=== PATIENT | male | born 1965 | race Caucasian/White ===

== ENCOUNTER 2020-09-22 09:33 | Emergency (ER) | payer OTHER ==
[2020-09-22 09:43] VITALS: BP 146/89; PULSE 78; BMI 428.7
[2020-09-22 09:53] VITALS: TEMP 97.3
[2020-09-22] MEDS ORDERED: KETOROLAC TROMETHAMINE 15 MG/ML VIAL IVPUSH ONE (10:34)
[2020-09-22] MEDS ORDERED: ACETAMINOPHEN 325 MG TABLET (FP) PO ONE (10:35)
[2020-09-22] MEDS ORDERED: LIDOCAINE 5% TOPICAL PATCH TP ONE (10:36)
[2020-09-22] MEDS ORDERED: KETOROLAC TROMETHAMINE 15 MG/ML VIAL ONE (10:48)
[2020-09-22] MEDS ORDERED: LIDOCAINE 5% TOPICAL PATCH ONE (10:48)
[2020-09-22 11:02] LABS: EOS % 0.8 % (0-4.5); HEMATOCRIT 41.5 % (35.4-49); HEMOGLOBIN 13.7 GM/dL (11.7-16.9); MCH 26.2 pg (25.7-33.7); MEAN CELL VOLUME 79.5 fl (80-96); MEAN PLT VOLUME 8.8 fl (7.5-11.1); MONO % 8.1 % (3.8-10.2); NEUT % 74.1 % (42.8-82.8); PLATELET COUNT 307 K/MM3 (134-434); RBC 5.23 M/mm3 (4.00-5.60); RDW 17.2 % (11.9-15.9); WHITE BLOOD COUNT 13.2 K/mm3 (4.0-10.0)
[2020-09-22 11:22] LABS: CHLORIDE 106 mmol/L (98-107); POTASSIUM 4.6 mmol/L (3.5-5.1); SODIUM 137 mmol/L (136-145)
[2020-09-22 11:24] LABS: ALBUMIN 3.2 g/dl (3.4-5.0); ANION GAP 5 MMOL/L (8-16); BLOOD UREA NITROGEN 16.1 mg/dL (7-18); CALCIUM 8.6 mg/dL (8.5-10.1); CO2 26 mmol/L (21-32)
[2020-09-22 11:25] LABS: GLUCOSE,RANDOM 89 mg/dL (74-106)
[2020-09-22 11:27] LABS: SGOT/AST 12 U/L (15-37); SGPT/ALT 17 U/L (13-61)
[2020-09-22 11:29] LABS: BILIRUBIN,TOTAL 0.5 mg/dL (0.2-1); TOT PROT 7.5 g/dl (6.4-8.2)
[2020-09-22 11:30] LABS: ALK PHOS 71 U/L (45-117)
[2020-09-22] MEDS ORDERED: LIDOCAINE PATCH REMOVAL MC ONE (22:00)
== END 2020-09-22 12:17 | disposition home or self-care (01) ==
LOC: JER 09:33
PROC: 3E0333Z Introduction of Anti-inflammatory into Peripheral Vein, Percutaneous Approach (ICD-10-PCS; principal; 2020-09-22)
DX: M25.511 Pain in right shoulder (principal)
CPT/HCPCS: 36415; 71045-TC-FY; 73030-TC-RT-FY; 80053; 82550; 83735; 84484; 85025; 93005; 93010; 99285-25

== ENCOUNTER 2021-03-18 20:32 | Emergency (ER) | payer OTHER ==
[2021-03-18 20:40] VITALS: BP 151/99; PULSE 74; TEMP 98; BMI 47.5
[2021-03-18] MEDS ORDERED: KETOROLAC TROMETHAMINE 30 MG/1 ML VIAL IM ONE (21:46)
[2021-03-18] MEDS ORDERED: CLINDAMYCIN HCL 300 MG CAPSULE PO ONE (21:54)
[2021-03-18] MEDS ORDERED: KETOROLAC TROMETHAMINE 30 MG/1 ML VIAL ONE (22:09)
[2021-03-18] MEDS ORDERED: CLINDAMYCIN HCL 150 MG CAPSULE (FP) ONE (22:10)
== END 2021-03-18 22:35 | disposition home or self-care (01) ==
LOC: JERFT 20:32
PROC: 3E0233Z Introduction of Anti-inflammatory into Muscle, Percutaneous Approach (ICD-10-PCS; principal; 2021-03-18)
DX: K08.89 Other specified disorders of teeth and supporting structures (principal)
CPT/HCPCS: 99284-25

== ENCOUNTER 2022-02-01 11:01 | Emergency (ER) | payer OTHER ==
[2022-02-01 11:50] VITALS: BP 159/97; PULSE 83; TEMP 98; BMI 55.4
[2022-02-01] MEDS ORDERED: CEPHALEXIN MONOHYDRATE 500 MG CAPSULE (UD) PO ONE (15:45)
[2022-02-01] MEDS ORDERED: CEPHALEXIN MONOHYDRATE 500 MG CAPSULE (UD) ONE (16:14)
== END 2022-02-01 16:20 | disposition home or self-care (01) ==
LOC: JER 11:01
DX: R22.41 Localized swelling, mass and lump, right lower limb (principal)
CPT/HCPCS: 93005; 93010; 93971-TC; 99284-25